=== PATIENT | female | born 1995 | race Caucasian/White ===

== ENCOUNTER → 2020-10-20 | Outpatient (CLI) | payer OTHER | LOC: EROP 14:51 | DX: U07.1 COVID-19 (principal) | CPT/HCPCS: U0002 ==

== ENCOUNTER 2020-11-27 12:18 | Emergency (ER) | payer BC ==
[2020-11-27 12:53] LABS: HEMOGLOBIN 13.8 gm/dl (12.3-15.3); RED BLOOD COUNT 4.99 M/UL (4.00-5.10)
[2020-11-27 13:15] LABS: BUN/CREATININE RATIO 14 (0-10)
== END 2020-11-27 16:40 | disposition home or self-care (01) ==
LOC: ER1 12:18
PROVIDERS: Emergency Medicine
DX: E87.2 Acidosis (principal); Z88.1 Allergy status to other antibiotic agents; Z79.899 Other long term (current) drug therapy; Z20.822 Contact with and (suspected) exposure to COVID-19
CPT/HCPCS: 71045; 80053; 81001; 83605; 83735; 84100; 84439; 84443; 84703; 85025; 87040; 87086; 93005; 96374; 96375; 99284; J0696; J1885; J2405; J7030; Q9967; U0002

== ENCOUNTER → 2020-12-12 | Outpatient (CLI) | payer BC | LOC: HEART 5 08:51 | DX: R06.00 Dyspnea, unspecified (principal); R00.2 Palpitations | CPT/HCPCS: 94010 ==

== ENCOUNTER → 2021-07-26 | Outpatient (CLI) | payer BC | LOC: LAB 18:18 | DX: R30.0 Dysuria (principal) | CPT/HCPCS: 81001; 87077; 87086; 87186 ==

== ENCOUNTER → 2021-10-21 | Outpatient (CLI) | payer BC | LOC: EROP 14:08 | DX: U07.1 COVID-19 (principal) | CPT/HCPCS: U0002 ==